=== PATIENT | female | born 1945 | race Caucasian/White ===

== ENCOUNTER 2020-01-25 19:02 | Emergency (ER) | payer MEDICARE, OTHER ==
[~2020-01-25] VITALS: Ht 162.6 cm; Wt 78.0 kg
[2020-01-25] MEDS ORDERED: HYDROcodone/APAP 5/325MG 1 TAB TABLET PO ONE (19:45)
--- NOTE | 2020-01-25 19:57 | PHYS DOC ---
Past History Past Medical History: CAD, Dementia, Hypertension Past Surgical History: Hip Replacement, Other Additional Past Surgical Histo: patient is unsure Smoking: Non-smoker Alcohol Use: None Drug Use: None General Adult EDM: Chief Complaint: MECHANICAL FALL HPI: HPI: Patient is a 74-year-old female who presents to the emergency department after a mechanical fall from standing this morning around 0530. States that her walker slipped away from in front of her, she fell forward and hit the right side of her face on the ground. Denies LOC. Reports headache and pain around the right orbit and right upper lip. She does take blood thinners but is unable to melody mber which one. Denies any numbness, weakness, visual changes since the fall. States that she did have a nosebleed for a while after the fall, but has since stopped. Denies injury to any other part of the body. Review of Systems: Review of Systems: Constitutional: Denies fever or chills Eyes: Denies redness or eye pain, denies visual changes since the fall HENT: Denies nasal congestion or sore throat Respiratory: Denies cough or shortness of breath Cardiovascular: Denies chest pain or palpitations GI: Denies abdominal pain, nausea, or vomiting : Denies dysuria or hematuria Musculoskeletal: Denies back pain or joint pain Integument: Reports pain and periorbital bruising around the right orbit, reports pain and swelling in the maxillary area on the upper lip on the right side Neurologic: Reports headache, denies focal weakness or sensory changes Complete systems were reviewed and found to be within normal limits, except as documented in this note. Current Medications: Current Meds: Current Medications Medications (Trade) Dose Ordered Sig/Genet Start Time Stop Time Status Last Admin Dose Admin Acetaminophen/ Hydrocodone Bitart (Lortab 5/325) 1 tab 1X ONCE 01/25/20 19:45 01/25/20 19:46 Allergies: Allergies: Allergies Coded Allergies Type Severity Reaction Last Updated Verified No Known Drug Allergies 01/25/20 No Physical Exam: PE: Constitutional: Well developed, well nourished, no acute distress, non-toxic appearance HENT: Normocephalic, ecchymosis and swelling around the right periorbital region and across the nasal bridge, swelling and ecchymosis noted in the maxillary area of the upper lip on the right side, no laceration noted to the mucosal surfaces of the mouth, various teeth missing, turbinates clear and no bleeding noted from either nare Eyes: PERRL, EOMI without pain, conjunctiva normal, no discharge or bleeding Neck: Normal range of motion, no tenderness, supple Lungs & Thorax: No respiratory distress, equal chest rise and fall Abdomen: Soft, no tenderness Skin: Scattered ecchymosis around the right orbit and nasal bridge and upper lip on the right side Back: No tenderness, no CVA tenderness Extremities: No tenderness, ROM intact from baseline, no edema Neurologic: Alert and oriented X 3, normal motor function, normal sensory function, no focal deficits noted Psychologic: Affect normal, judgment normal Current Patient Data: Vital Signs: Vital Signs Date Time Temp Pulse Resp B/P (MAP) Pulse Ox O2 Delivery O2 Flow Rate FiO2 01/25/20 19:16 98.0 66 22 160/82 (108) 97 EKG: EKG: [] Radiology/Procedures: Radiology/Procedures: PROCEDURE: 1. CT HEAD WITHOUT CONTRAST. 2. CT FACIAL BONES WITHOUT CONTRAST. 3. CT CERVICAL SPINE WITHOUT CONTRAST. HISTORY: Fall, headache, neck pain. TECHNIQUE: Computed tomography of the head, facial bones and cervical spine was performed without intravenous contrast. One or more of the following individualized dose reduction techniques were utilized for this examination: 1. Automated exposure control. 2. Adjustment of the mA and/or kV according to patient size. 3. Use of iterative reconstruction technique. COMPARISON: None. FINDINGS: There is no intracranial hemorrhage. There are small chronic lacunar infarcts bilaterally in the basal ganglia. The ventricles are normal in size and position. The temporal bones are unremarkable. The calvarium reveals no suspicious lesions. No facial fractures are identified. There are small mucus retention cysts in the left maxillary sinus. There appears to be mild soft tissue swelling along the right eyelids and the upper limit. There is no evidence of intraorbital injury. There are anterior cervical discectomy and fusion changes from C3 through C5. These appear solid anteriorly and posteriorly. There is mild osteoarthritis at C1/2. No fractures are identified. Degenerative disc disease is moderate to severe at C5-6, moderate from C6 through T1 and mild at C2-3. Congenital anterior fusion is suspected at T3-4, incompletely visualized. There is no prevertebral soft tissue swelling. At C2-3, there is no significant stenosis. At C3-4, there is no significant stenosis. At C4-5, there is moderate left facet and uncovertebral hypertrophy. Left neural foraminal stenosis is mild. At C5-6, there is a moderate posterior disc-osteophyte complex. Uncovertebral osteoarthritis is moderate bilaterally. Neural foraminal stenosis is mild bilaterally. Central canal stenosis appears mild. Facet osteoarthritis is moderate to severe on the left. At C6-7, there is a moderate posterior disc-osteophyte complex. Uncovertebral osteoarthritis is moderate on the left and mild on the right. Neural foraminal stenosis is moderate on the left. Central canal stenosis appears mild with more severe left lateral recess stenosis. IMPRESSION: 1. No acute intracranial findings. Chronic bilateral basal ganglia infarcts. 2. No facial fractures. Soft tissue swelling as above. 3. No cervical fracture or malalignment. 4. C3-C5 anterior cervical discectomy and fusion. Moderate to severe degenerative changes as above. Electronically signed by: David Holcomb MD (01/25/2020 8:31 PM) [facility] Course & Med Decision Making: Course & Med Decision Making Pertinent Labs and Imaging studies reviewed. (See chart for details) Patient presents the emergency department after a mechanical fall from standing that occurred this morning. She is on blood thinners but is unable to remember which one. She has a headache and facial pain around the areas of bruising. Basic labs and coags were normal. Pain was adequately controlled and face and cervical spine CT revealed no acute findings. Patient stable for discharge with outpatient follow-up with PCP. Discussed findings and plan with patient, who acknowledges understanding and agreement. Butch Disclaimer: Butch Disclaimer: This electronic medical record was generated, in whole or in part, using a voice recognition dictation system. Departure Departure: Impression: Primary Impression: Fall Qualified Codes: W19.XXXA - Unspecified fall, initial encounter Additional Impression: Facial contusion Qualified Codes: S00.83XA - Contusion of other part of head, initial encounter Disposition: 01 DC HOME SELF CARE/HOMELESS Condition: STABLE Referrals: PCP,UNKNOWN (PCP) Patient Instructions: Facial or Scalp Contusion, [id number], Fall Prevention and Home Safety, [id number] Scripts Hydrocodone Bit/Acetaminophen (NORCO 5-325 TABLET) 1 Each Tablet 0.5-1 TAB PO Q6HRS PRN for PAIN, #10 TAB Prov: DAILEY,JAZMYNE R DO 01/25/20 JAZMYNE DAILEY DO Jan 25, 2020 19:57
--- NOTE | 2020-01-25 20:34 | RAD ---
EXAM: 1. CT HEAD WITHOUT CONTRAST. 2. CT FACIAL BONES WITHOUT CONTRAST. 3. CT CERVICAL SPINE WITHOUT CONTRAST. HISTORY: Fall, headache, neck pain. TECHNIQUE: Computed tomography of the head, facial bones and cervical spine was performed without intravenous contrast. One or more of the following individualized dose reduction techniques were utilized for this examination: 1. Automated exposure control. 2. Adjustment of the mA and/or kV according to patient size. 3. Use of iterative reconstruction technique. COMPARISON: None. FINDINGS: There is no intracranial hemorrhage. There are small chronic lacunar infarcts bilaterally in the basal ganglia. The ventricles are normal in size and position. The temporal bones are unremarkable. The calvarium reveals no suspicious lesions. No facial fractures are identified. There are small mucus retention cysts in the left maxillary sinus. There appears to be mild soft tissue swelling along the right eyelids and the upper limit. There is no evidence of intraorbital injury. There are anterior cervical discectomy and fusion changes from C3 through C5. These appear solid anteriorly and posteriorly. There is mild osteoarthritis at C1/2. No fractures are identified. Degenerative disc disease is moderate to severe at C5-6, moderate from C6 through T1 and mild at C2-3. Congenital anterior fusion is suspected at T3-4, incompletely visualized. There is no prevertebral soft tissue swelling. At C2-3, there is no significant stenosis. At C3-4, there is no significant stenosis. At C4-5, there is moderate left facet and uncovertebral hypertrophy. Left neural foraminal stenosis is mild. At C5-6, there is a moderate posterior disc-osteophyte complex. Uncovertebral osteoarthritis is moderate bilaterally. Neural foraminal stenosis is mild bilaterally. Central canal stenosis appears mild. Facet osteoarthritis is moderate to severe on the left. At C6-7, there is a moderate posterior disc-osteophyte complex. Uncovertebral osteoarthritis is moderate on the left and mild on the right. Neural foraminal stenosis is moderate on the left. Central canal stenosis appears mild with more severe left lateral recess stenosis. IMPRESSION: 1. No acute intracranial findings. Chronic bilateral basal ganglia infarcts. 2. No facial fractures. Soft tissue swelling as above. 3. No cervical fracture or malalignment. 4. C3-C5 anterior cervical discectomy and fusion. Moderate to severe degenerative changes as above. Electronically signed by: David Holcomb MD (01/25/2020 8:31 PM) [facility]
[2020-01-25 20:36] LABS: BASO # 0.1 x10^3/uL (0.0-0.2); BASO % 1 % (0-3); EOS # 0.2 x10^3/uL (0.0-0.7); EOS % 3 % (0-3); HEMATOCRIT 37.6 % (36.0-47.0); HEMOGLOBIN 12.5 g/dL (12.0-15.5); LYMPH # 2.2 x10^3/uL (1.0-4.8); LYMPH % 26 % (24-48); MEAN CORPUSCULAR HEMOGLOBIN 33 pg (25-35); MEAN CORPUSCULAR HGB CONC 33 g/dL (31-37); MEAN CORPUSCULAR VOLUME 99 fL (79-100); MONO # 0.5 x10^3/uL (0.0-1.1); MONO % 6 % (0-9); NEUT # 5.7 x10^3uL (1.8-7.7); NEUT % 65 % (31-73); PLATELET COUNT 240 x10^3/uL (140-400); RED CELL DISTRIBUTION WIDTH 14.2 % (11.5-14.5); WHITE BLOOD COUNT 8.8 x10^3/uL (4.0-11.0)
[2020-01-25 21:20] VITALS: BP 177/86
[2020-01-25] MEDS ORDERED: HYDR-3165 PO (21:32)
[2020-01-25 21:57] LABS: BACTERIA,URINE MANY /HPF (0-FEW); BILIRUBIN,URINE NEG (NEG); CLARITY,URINE HAZY; COLOR,URINE YELLOW; GLUCOSE,URINE NEG (NEG); NITRITE,URINE NEG (NEG); RBC,URINE 0 /HPF (0-2); SQUAMOUS EPITHELIAL CELL,UR OCC /LPF
== END 2020-01-25 21:47 | disposition home or self-care (01) ==
LOC: ER 19:02
DX: S00.11XA Contusion of right eyelid and periocular area, initial encounter (principal); S00.531A Contusion of lip, initial encounter; I10 Essential (primary) hypertension; F03.90 Unspecified dementia, unspecified severity, without behavioral disturbance, psychotic disturbance, mood disturbance, and anxiety; I25.10 Atherosclerotic heart disease of native coronary artery without angina pectoris; W18.39XA Other fall on same level, initial encounter; Y93.89 Activity, other specified; Y92.89 Other specified places as the place of occurrence of the external cause; Y99.8 Other external cause status
CPT/HCPCS: 36415; 70450; 70486; 72125; 81001; 85025; 85610; 85730; 87086; 99285-25

== ENCOUNTER 2020-04-03 21:51 | Emergency (ER) | payer MEDICARE, OTHER ==
[~2020-04-03] VITALS: Ht 162.6 cm; Wt 76.6 kg
[~2020-04-03 21:51] MED LIST: HYDR-3165 PO
[2020-04-03] MEDS ORDERED: oxyCODONE/APAP 5/325 1 TAB TABLET PO ONE (22:30)
--- NOTE | 2020-04-03 22:42 | RAD ---
Study: XR HAND_RIGHT 3 VIEWS Indication: Fall. Right hand swelling, bruising and pain. Comparison: None. Findings: Acute, comminuted fractures of the third, fourth and fifth metacarpal shafts. The third and fourth me tacarpal shaft fractures extend 2 the head/neck junction. Only mild fracture displacement by around a cortical width. Possible subtle nondisplaced fracture at the base of the index finger middle phalanx though assessment for subtle fractures is made difficult by osteopenia. The soft tissues appear ruth ann atous along the long finger phalanges but without a discrete fracture. No acute fracture seen through out the wrist. Scattered interphalangeal joint arthrosis and degenerative changes at the thumb CMC mo re so than triscaphe joints. Impression: 1. Comminuted fractures of the third, fourth and fifth metacarpals with up to around a cortical width displacement. 2. Suspected nondisplaced fracture of the index middle phalanx. 3. The soft tissues along the long finger phalanges appear edematous but no definite fracture is iden tified noting limited assessment by osteopenia. Electronically signed by: YAA MAZA MD (04/03/2020 10:40 PM) [facility]
[2020-04-03 23:10] VITALS: BP 177/60
--- NOTE | 2020-04-03 23:18 | PHYS DOC ---
Past History Past Medical History: CAD, Dementia, Hypertension Past Surgical History: Hip Replacement, Other Additional Past Surgical Histo: patient is unsure Smoking: Non-smoker Alcohol Use: None Drug Use: None Adult General Chief Complaint Chief Complaint: MECHANICAL FALL HPI HPI Patient is 74-year-old female presents to the emergency room after a fall from standing. Patient has severe degenerative arthritis in her right hip that requires replacement. She is scheduled to have a replacement done in 3 weeks. She has been having increased difficulty getting up and moving around due to her hip pain. Yesterday she tried to get up and go to the bathroom and was unable to make it and fell forward landing onto her hands. She denies hitting her head or losing consciousness. She states that she is having a very hard time getting around and making it to the bathroom. She has significant hand pain. She states both the pain in her hips are severe. The pain in her hand feels like throbbing. She is able to move her hand fully but it is painful. Review of Systems Review of Systems Complete ROS is negative unless otherwise documented in HPI Current Medications Current Medications Current Medications Medications (Trade) Dose Ordered Sig/Genet Start Time Stop Time Status Last Admin Dose Admin Oxycodone/ Acetaminophen (Percocet 5/325) 1 tab 1X ONCE 04/03/20 22:30 04/03/20 22:31 DC 04/03/20 22:27 1 TAB Allergies Allergies Allergies Coded Allergies Type Severity Reaction Last Updated Verified No Known Drug Allergies 01/25/20 No Physical Exam Physical Exam General: Awake, alert, NAD. Well Nourished, well hydrated. Cooperative HEENT: Atraumatic, EOMI, PERRL, airway patent, moist oral mucosa Neck: Supple, trachea midline Respiratory: CTA bilaterally, normal effort, no wheezing/crackles CV: RRR, no murmur, cap refill <2 GI: Soft, nondistended, nontender, no masses MSK: Right hand: Significant swelling within the hand, soft compartments, bruising diffusely within the hand. Tenderness along the lateral aspect of the metacarpals, full range of motion in fingers and wrist, 2+ radial pulse, normal capillary refill, intact sensation. Right hip: Severe tenderness, no rotation, no shortening Skin: Warm, dry, intact Neuro: A&O x3, speech NL, sensory and motor grossly intact, no focal deficits Psych: Normal affect, normal mood, not suicidal or homicidal Current Patient Data Vital Signs Vital Signs Date Time Temp Pulse Resp B/P (MAP) Pulse Ox O2 Delivery O2 Flow Rate FiO2 04/03/20 23:10 72 18 177/60 (99) 98 Room Air 04/03/20 21:51 98.2 EKG EKG [] Radiology/Procedures Radiology/Procedures [] Heart Score Risk Factors: Risk Factors: DM, Current or recent (<one month) smoker, HTN, HLP, family history of CAD, obesity. Risk Scores: Risk Factors: DM, Current or recent (<one month) smoker, HTN, HLP, family history of CAD, obesity. Course & Med Decision Making Course & Med Decision Making Pertinent Labs and Imaging studies reviewed. (See chart for details) Patient is 74-year-old female presents to the emergency room after having a fall yesterday and now has severe hand pain. Patient has been dealing with right hip pain for quite some time. Patient is unable to get around at home. She does appear to be significant fall risk. She is in significant pain. She is not taking anything for pain at home other than aspirin. She did take some aspirin prior to arrival. She did not hit her head and does not need a CT of h er head or neck. X-ray of the hand shows multiple metatarsal fractures. Patient does not appear to have compartment syndrome at this time and has full range of motion of her hand. She will need evaluation by an orthopedic surgeon. She is unable to care for herself at home at this time and will need to be evaluated for possible wheelchair. I have discussed the case with Dr. Hess who will admit her to [facility] where she can be evaluated by an orthopedic surgeon. I have discussed the plan with the patient who is in agreement. She will be transferred to [facility]. Dragon Disclaimer Dragon Disclaimer This electronic medical record was generated, in whole or in part, using a voice recognition dictation system. Departure Departure: Impression: Primary Impression: Multiple fractures of metacarpal bones Additional Impressions: Fall Degenerative arthritis of hip Disposition: 02 DC/TRF OTHER SHORT TERM HOS Condition: STABLE Referrals: PCP,UNKNOWN (PCP) Problem Qualifiers ANSON SALTER MD Apr 03, 2020 23:18
== END 2020-04-04 00:12 | disposition short-term general hospital (02) ==
LOC: ER 21:51
DX: S62.322A Displaced fracture of shaft of third metacarpal bone, right hand, initial encounter for closed fracture (principal); S62.324A Displaced fracture of shaft of fourth metacarpal bone, right hand, initial encounter for closed fracture; S62.326A Displaced fracture of shaft of fifth metacarpal bone, right hand, initial encounter for closed fracture; I10 Essential (primary) hypertension; F03.90 Unspecified dementia, unspecified severity, without behavioral disturbance, psychotic disturbance, mood disturbance, and anxiety; M16.11 Unilateral primary osteoarthritis, right hip; I25.10 Atherosclerotic heart disease of native coronary artery without angina pectoris; W18.39XA Other fall on same level, initial encounter; Y93.89 Activity, other specified; Y92.89 Other specified places as the place of occurrence of the external cause; Y99.8 Other external cause status
CPT/HCPCS: 29125; 73130; 99285-25